=== PATIENT | male | born 1995 | race Caucasian/White ===

== ENCOUNTER 2024-07-26 23:31 | Emergency (ER) | payer OTHER, SELFPAY ==
[2024-07-26 23:34] VITALS: BP 126/82
[2024-07-27 00:49] VITALS: BP 129/81
[2024-07-27 01:00] VITALS: BP 126/75
[2024-07-27 02:00] VITALS: BP 132/77
--- NOTE | 2024-07-27 02:05 | ED.GENMED ---
History of Present Illness
General
Chief Complaint: Skin Problem
Source: patient
Exam Limitations: none
Time Seen by Provider: 07/27/24 01:56
Nursing documentation reviewed up to this point in time: agreed with
History of Present Illness
History of Present Illness:
This is a 29-year-old male who has no significant past medical history, takes no medicines on a daily basis who presents with complaints of focal skin abscess to his left medial lower leg. Pain and redness began 2 days ago and prior to that he
noticed a small rash that was itchy and admits to focally scratching at the area.
Today he also noticed a smaller inflamed area left anterior thigh.
No history of similar episodes in the past. He denies history of MRSA.
He has been taking ibuprofen sporadically for pain with last dose this afternoon.
He denies fever nor chills.
Past History
Past History
ED Past Medical History: None
ED Past Surgical History: Tonsilectomy and Other (Eye surgery)
Social History
Alcohol: Occasional
Drug: None
Personal: Single
Living: with family
Employment: Employed
Family History
Family History: Other (Noncontributory)
Phy Exam
Physical Exam
Physical Exam:
GENERAL: 29-year-old gentleman appears his stated age, awake and alert, pleasant, appears in no acute distress. Afebrile. Oral temperature 98.4 �F.
EYE: pupils equal. anicteric
NECK: Supple, nontender, no meningismus, no significant adenopathy.
ENT: oral mucosa is moist. No rhinorrhea.
CARDIAC: Regular rate and rhythm. no murmur.
LUNGS: Clear breath sounds bilaterally, no acute respiratory distress, no wheezes/rales/rhonchi
ABDOMEN: Soft, nondistended, without focal tenderness
NEUROLOGICAL: Alert and oriented x3, no focal neuro deficits. Gait is villareal and steady.
SKIN: Warm and dry, normal color, no rash appreciated. On the medial aspect of the left lower leg is a focal skin abscess with small central area of eschar with surrounding erythema approximately 4 cm in diameter. There is no drainage nor
fluctuance. Mild local tenderness to palpation. No lymphangitis. On the mid aspect of the left anterior thigh is a small focal hair follicle pustule without surrounding erythema.
MUSCULOSKELETAL: No C/C/E. peripheral pulses are full and equal b/l.
PSYCH: Normal and appropriate interaction.
Sepsis
Sepsis Screening
Sepsis Assessment: Sepsis Ruled Out
Sepsis Screen
Sepsis Screen: Sepsis Ruled Out
Date: 07/27/24
Time: 02:14
Course
Orders/Labs/Results
Orders:
Orders
07/27/24 02:05
Doxycycline [Vibramycin] 100 mg PO NOW STA
Ibuprofen [Motrin] 600 mg PO NOW STA
07/27/24 00:03
07/27/24 00:03
Vital Signs
Initial and Last Documented VS:
Initial Vital Signs
Temp Pulse Resp BP Pulse Ox
99 F 98 20 126/82 100
07/26/24 23:34 07/26/24 23:34 07/26/24 23:34 07/26/24 23:34 07/26/24 23:34
Last Documented Vital Signs
Temp Pulse Resp BP Pulse Ox
99 F 98 19 129/81 99
07/26/24 23:34 07/26/24 23:34 07/27/24 00:00 07/27/24 00:49 07/27/24 00:49
MDM/Problems Addressed
Differential Diagnosis Includes:
Patient presents with focal skin abscess that appears infected hair follicle in nature left medial lower leg as well as a smaller pinpoint pustule left anterior thigh.
Overall well in appearance. Afebrile.
No significant past medical history including no history of diabetes, no history of immunocompromise.
No history of similar abscesses in the past.
Left lower leg abscess is without fluctuance nor pointing, not amenable to I&D as yet
Will treat with a course of doxycycline and provide ibuprofen for as needed pain.
Recommend supportive measures, elevation, local heat.
Discussed importance of avoidance of picking or squeezing.
Will refer to our family practice clinic for follow-up.
Return precautions discussed.
*Pulse Oximetry
Patient hypoxic: no
*Critical Care Note
Total Time (30-74mins, 75-104mins- exclusive of procedures): Not Applicable
ED Attending Note
-
Portions of this chart may have been created with voice recognition software.� Occasional wrong word or��sound alike� substitutions may have occurred due to the inherent limitations of voice recognition software.
Discharge Plan
Departure
Patient Disposition: Home (Routine Discharge)
Date of Disposition: 07/27/24
Time of Disposition: 02:19
Patient with high blood pressure during this ER visit?: No
Condition: Good
Discharge Problem:
Abscess of skin
Instructions: Skin Abscess
Prescriptions:
New
doxycycline monohydrate 100 mg capsule
100 mg PO BID Qty: 20 1RF
ibuprofen 600 mg tablet
600 mg PO QID PRN (Reason: fever or pain) Qty: 30 0RF
Referrals:
[facility] [Provider Group] - Call in 1-3 days for appt
Interventions
Interventions:
*Risk Screen - Suicide Last Done: 07/26/24 23:34
*General Assessment Last Done: 07/27/24 00:52
*Neglect/Abuse Screening Last Done: 07/26/24 23:34
*ED- Fall Risk Assessment Last Done: 07/27/24 00:52
*ED COVID-19 Vaccine History Last Done: 07/27/24 00:52
ED-Skin Assessment Last Done: 07/27/24 00:53
Discharge Date and Time
Print Language: RWANDAN
[2024-07-27] MEDS: VIBRAMYCIN 100 MG PO (02:22)
[2024-07-27] MEDS: MOTRIN 600 MG PO (02:22)
== END 2024-07-27 02:26 | disposition home or self-care (01) ==
LOC: EMR 23:31
PROVIDERS: EMERGENCY PHYSICIAN Emergency Medicine
DX: L02.416 Cutaneous abscess of left lower limb (principal); M79.605 Pain in left leg
CPT/HCPCS: 99283